=== PATIENT | male | born 1970 | race African-American/Black ===

== ENCOUNTER 2016-11-12 17:39 | Emergency (ER) | payer OTHER ==
[~2016-11-12] VITALS: Ht 180.3 cm; Wt 96.2 kg
[~2016-11-12 17:39] MED LIST: AUGMENTIN 875 M1 TAB PO; AZITHROMYCIN250 MG PO; CYCLOBENZAPRINE10 M1 PO; FLEXERIL10 MG PO; IBU800 MG PO; IBUPROFEN600 M1 PO; MOTRIN800 MG PO; PREDNISONE20 M1 PO; VICODIN5-300 PO; ZITHROMAX250 M2 PO
--- NOTE | 2016-11-12 18:55 | ED GI/GU/ABDOMINAL COMPLAINT ---
History of Present Illness General Chief Complaint: Abdominal Pain/Flank Pain Stated Complaint: R ABD PAIN RADIATING TO BACK Source: patient Exam Limitations: no limitations Vital Signs & Intake/Output Vital Signs & Intake/Output Vital Signs Date Time Temp Pulse Resp B/P Pulse O2 O2 Flow FiO2 Ox Delivery Rate 11/12 1938 97.9 85 18 183/113 99 11/12 1749 98.5 87 16 149/92 98 Room Air ED Intake and Output 11/13 0000 11/12 1200 Intake Total 1000 Output Total Balance 1000 Intake, IV 1000 Patient 212 lb Weight Allergies Coded Allergies: Penicillins (CONVULSIONS 11/12/16) Triage Note: PT STATES HE HIS HAVING RIGHT SIDED ABD PAIN THAT RADIATES INTO HIS BACK. PT STATES THE PAIN BEGAN ON SUNDAY ADN IT HAS GOTTEN PROGRESSIVLY WORSE. Triage Nurses Notes Reviewed? yes HPI: This patient is a 46-year-old male who presented to the emergency department today for evaluation of right side pain. He reported that the pain began approximately 3 days ago as intermittent, mild pain in his right side. He reported that it began more towards the front near his abdomen. He reported that over the last couple of days he has noticed the pain more. Today the pain got worse and comes and goes. It is worse with certain movements and is rated at a 8 out of 10. It is sharp and radiates towards his right lower back. The patient reported that last week he was moving some heavy furniture. He denies any fevers, chills, chest pain, difficulty breathing, abdominal pain, nausea, vomiting, urinary burning, urgency, frequency, urine, or any constipation or diarrhea. (MARTHA HORN,JANIE) Reconcile Medications Cyclobenzaprine HCl 5 MG TABLET 1 TAB PO TIDPRN PRN MUSCLE SPASMS Naproxen (Naprosyn) 500 MG TABLET 1 TAB PO BID PRN PAIN AND INFLAMMATION (NO VALENTE,JUANITA Uriostegui) Past History Travel History Traveled to [place] past 21 day No Medical History Any Pertinent Medical History? 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 No (JANIE THOMAS PA-C) Review of Systems Review of Systems Constitutional: Reports: no symptoms. EENTM: Reports: no symptoms. Respiratory: Reports: no symptoms. Cardiovascular: Reports: no symptoms. GI: Reports: see HPI. Genitourinary: Reports: no symptoms. Musculoskeletal: Reports: see HPI. Skin: Reports: no symptoms. Neurological/Psychological: Reports: no symptoms. All Other Systems: Reviewed and Negative (JANIE THOMAS PA-C) Physical Exam Physical Exam Gastrointestinal: normal bowel sounds, soft, non-tender, no organomegaly, no rebound or guarding. No peritoneal signs. Nondistended. Comments: Well-developed well-nourished person in no acute distress HEENT: Normal EENT exam, head normocephalic, moist mucous membranes Neck: Supple. Full range of motion Back: Normal inspection. No midline tenderness. No CVA tenderness. Normal gait Cardiovascular: Regular rate and rhythm with no murmurs, rubs, or gallops Respiratory: No respiratory distress. Speaking in full sentences Extremity: Normal and equal pulses. Neuro: Alert oriented x3, cranial nerves II through XII grossly intact. Skin: No appreciable rash on exposed skin, skin is warm and dry. Psych: Mood and affect is normal Core Measures ACS in differential dx? No Severe Sepsis Present: No Septic Shock Present: No (JANIE THOMAS PA-C) Progress Differential Diagnosis: biliary colic, bowel obstruction, colon cancer, cholecystitis, diverticulitis, gastritis, hepatitis, ischemic bowel, inflamm bowel dis, pancreatitis, PUD/GERD, perforated viscous, pyelonephritis, STD, ureterolithiasis, urinary retention, urethritis, UTI/pyelo, muscular strain Plan of Care: Orders Procedure Date/time Status LIPASE 11/12 1853 Complete LACTIC ACID 11/12 1853 Complete DIRECT BILIRUBIN 11/12 1853 Complete COMPREHENSIVE METABOLIC PANEL 11/12 1853 Complete CBC WITHOUT DIFFERENTIAL 11/12 1853 Complete AMYLASE 11/12 1853 Complete URINALYSIS 11/12 175 Complete Laboratory Tests 11/12/16 2154: Lactic Acid Cancelled 11/12/16 1913: Anion Gap 15, Estimated GFR > 60, BUN/Creatinine Ratio 13.3, Glucose 96, Lactic Acid 0.9, Calcium 9.3, Total Bilirubin 0.5, Direct Bilirubin 0.2, AST 31, ALT 50 , Alkaline Phosphatase 91, Total Protein 8.4 H, Albumin 4.3, Globulin 4.1, Albumin/Globulin Ratio 1.0 L, Amylase 53, Lipase 117, CBC w Diff NO MAN DIFF REQ, RBC 4.54 L, MCV 95.2 H, MCH 31.8 H, RDW 13.0, MPV 8.9, Gran % 55.6, Lymphocytes % 31.7, Monocytes % 11.9 H, Eosinophils % 0.4, Basophils % 0.4, Absolute Granulocytes 3.6, Absolute Lymphocytes 2.1, Absolute Monocytes 0.8 H, Absolute Eosinophils 0, Absolute Basophils 0, PUBS MCHC 33.5 11/12/16 1754: Urinalysis LIGHT H, Urine Color YEL, Urine Clarity CLEAR, Urine pH 6.0, Ur Specific [place] >= 1.030, Urine Protein 30 H, Urine Ketones NEG, Urine Nitrite NEG, Urine Bilirubin NEG, Urine Urobilinogen 0.2, Ur Leukocyte Esterase NEG, Ur Microscopic SEDIMENT EXAMINED, Urine RBC 1-3, Urine WBC RARE, Ur Epithelial Cells RARE, Urine Bacteria RARE H, Urine Mucus FEW, Urine Hemoglobin TRACE- INTACT H, Urine Glucose NEG Initial ED EKG: none (JANIE THOMAS PA-C) Departure Departure Disposition: HOME OR SELF CARE Condition: Stable Clinical Impression Primary Impression: Muscle strain Referrals: KERRI HOWARD MD (PCP/Family) Additional Instructions: Take Flexeril as prescribed for muscular spasms. Take naproxen as prescribed for pain. Return for any worsening symptoms Departure Forms: Customer Survey General Discharge Information Prescriptions: Current Visit Scripts Cyclobenzaprine HCl 1 TAB PO TIDPRN PRN MUSCLE SPASMS #10 TAB Naproxen (Naprosyn) 1 TAB PO BID PRN PAIN AND INFLAMMATION #20 TAB (JANIE THOMAS PA-C) PA/FACE BOSS Co-Sign Statement Statement: ED Attending supervision documentation- [] I saw and evaluated the patient. I have also reviewed all the pertinent lab results and diagnostic results. I agree with the findings and the plan of care as documented in the PA's/FACE BOSS's documentation. [x] I have reviewed the ED Record and agree with the PA's/FACE BOSS's documentation. [] Additions or exceptions (if any) to the PAs/FACE BOSS's note and plan are summarized below: [] (NO VALENTE,JUANITA Uriostegui)
[2016-11-12 19:23] LABS: ABSOLUTE BASOPHIL COUNT 0 /CUMM (0.0-0.2); ABSOLUTE EOSINOPHIL COUNT 0 /CUMM (0.0-0.7); ABSOLUTE GRANULOCYTE CT 3.6 /CUMM (1.4-6.5); ABSOLUTE LYMPH COUNT 2.1 /CUMM (1.2-3.4); ABSOLUTE MONOCYTE COUNT 0.8 /CUMM (0.10-0.60); BASOPHIL % 0.4 % (0.0-2.0); EOSINOPHIL % 0.4 % (0-5); GRANULOCYTE % 55.6 % (42.2-75.2); HEMATOCRIT 43.2 % (42-52); MEAN CORPUSCULAR HGB 31.8 PG (27.0-31.0); MEAN CORPUSCULAR HGB CONC 33.5 G/DL (33.0-37.0); MEAN CORPUSCULAR VOLUME 95.2 FL (80.0-94.0); MEAN PLATELET VOLUME 8.9 FL (7.4-10.4); PLATELET COUNT 191 /CUMM (130-400); RED BLOOD CELL CT 4.54 /CUMM (4.70-6.10); WHITE BLOOD CELL COUNT 6.5 /CUMM (4.8-10.8)
[2016-11-12 19:38] VITALS: BP 183/113
[2016-11-12] MEDS ORDERED: CYCLOBENZAPRINE5 M2 PO (20:19)
[2016-11-12] MEDS ORDERED: NAPROSYN500 M1 PO (20:19)
== END 2016-11-12 20:35 ==
LOC: ERH 17:39
PROVIDERS: Physician Assistant
DX: R10.30 Lower abdominal pain, unspecified (principal); M54.5 Low back pain
CPT/HCPCS: 81001; 96360; J1885